=== PATIENT | female | born 1955 | race Caucasian/White ===

== ENCOUNTER 2016-09-01 07:42 | Day surgery (SDC) | payer MEDICAID ==
[~2016-09-01] VITALS: Ht 152.4 cm; Wt 84.4 kg
[~2016-09-01 07:42] MED LIST: ATEN-41 PO; HYDR25TA4 PO; LISI10TA5 PO; LOVA40TA75 PO; METF-303 PO; NEU300 PO
[2016-09-01] MEDS ORDERED: MIDAZOLAM HCL 5 MG/5 ML VIAL IVP ONE ×4 (09:06→09:27)
[2016-09-01] MEDS ORDERED: MEPERIDINE HCL/PF 100 MG/ML AMP IV ONE ×3 (09:06→09:29)
[2016-09-01 10:58] VITALS: BP_SYST 136
== END 2016-09-01 10:50 | disposition home or self-care (01) ==
LOC: SMU 07:42 → SDS 07:42
PROVIDERS: ATTEND Internal Medicine Gastroenterology
DX: R10.9 Unspecified abdominal pain (principal); K29.70 Gastritis, unspecified, without bleeding; K57.30 Diverticulosis of large intestine without perforation or abscess without bleeding; K64.8 Other hemorrhoids; I10 Essential (primary) hypertension; I21.3 ST elevation (STEMI) myocardial infarction of unspecified site; E11.9 Type 2 diabetes mellitus without complications; M19.90 Unspecified osteoarthritis, unspecified site; Z86.010 Personal history of colon polyps; K21.9 Gastro-esophageal reflux disease without esophagitis
CPT/HCPCS: 36415; 43239; 45378; 82962; 87081; 88305; 88312; 88313; J2175; J2250; J7030